=== PATIENT | male | born 1960 | race Caucasian/White ===

== ENCOUNTER 2020-10-31 07:15 | Day surgery (SDC) | payer BC ==
[~2020-10-31] VITALS: Ht 177.8 cm; Wt 91.8 kg
[~2020-10-31 07:15] MED LIST: DAILY VALUE1 EACH PO; LEVAQUIN750 MG PO; LEVOFLOXACIN250 MG PO
--- NOTE | 2020-11-01 05:21 | OR ---
[facility] [address], [place] [address] Signed DATE OF OPERATION: 10/31/2020 SURGEON: Kelvin Lynn MD PREOPERATIVE DIAGNOSES: 1. Diverticulosis (2010). 2. Open radical prostatectomy (2016). POSTOPERATIVE DIAGNOSES: 1. Moderate sigmoid diverticulosis. 2. Anal skin tags x2. 3. Angulated sigmoid colon at 25 cm. PROCEDURE: Colonoscopy without biopsy. ESTIMATED BLOOD LOSS: None. INDICATIONS: Paul is a 60-year-old gentleman asked to see me for his followup 2nd colonoscopy. He had his initial colonoscopy back in 2010 up in [place], [place]. He remembers being told he had diverticulosis, but no polyps. There is no family history of colon cancer or polyps. In the meantime, he had some melena after his 2nd COVID shot. However, he was drinking blueberry, smoothies and using Pepto-Bismol. That all cleared up nicely and he was guaiac negative afterwards. He also had a radical prostatectomy in 2016 with radiation treatment. He said currently he has no lower GI complaints. I had met with Paul in the office and I gave him a pamphlet on colonoscopy. We had discussed the nature of the test along with the risks including, but not limited to gas bloating, crampy abdominal pain, bleeding, perforation requiring surgery, and missed diagnosis. He had expressed understanding and wished to proceed. PROCEDURE NOTE: Paul was taken into our endoscopy suite and placed in the left lateral decubitus position. He was given a total of 10 mg of Versed and 200 mcg of fentanyl. He did fine until we got into the sigmoid colon around 25 cm. It is quite fixed and angulated and some mild inflammatory changes probably from radiation. He was diaphoretic in talking to us and really could not tolerate passing the scope any further. Consequently, we had our anesthesia provider come and add propofol. That worked out quite nicely. Then, I was able to pass the scope all the way around into the cecum without any resistance Electronically Signed By: KELVIN LYNN MD 11/01/20 0521 PATIENT NAME: MJ REYES OPERATIVE REPORT DATE OF : 62 REPORT #: [id number] PHYSICIAN: KELVIN LYNN MD PCP: ANJU CANO REPORT IS CONFIDENTIAL AND NOT TO BE RELEASED WITHOUT AUTHORIZATION [facility] [address], [place] [address] Signed whatsoever. His prep was quite excellent. We could easily see the appendiceal orifice and ileocecal valve. The scope was then slowly withdrawn. We took several pictures throughout for photodocumentation. We can see he has moderate sigmoid diverticulosis. They are moderate in size, moderate in number, and scattered about. Again, he has some angulation at around 25 cm. The rectum was unremarkable. I really did not see any radiation changes in the rectum. Upon retroflexion of scope, he has just a couple of small internal anal skin tags. On digital rectal exam, he had good sphincter tone and of course, the prostate is surgically absent. I did not feel any specific scarring in that area. After this, the gas was suctioned out and the colonoscope removed. Paul overall tolerated procedure well, but he did require the propofol. In that regard, he will need propofol in the future. RECOMMENDATIONS: Paul can follow up in 10 years for a repeat colonoscopy. He should consider monitored anesthesia care and propofol for future endoscopies as described above. MD BLANCA Merino/MODL /[id number] cc: MD Anju Merino PA Copies: KELVIN LYNN MD, LINDA PA ~ Electronically Signed By: KELVIN LYNN MD 11/01/20 0521 PATIENT NAME: MJ REYES OPERATIVE REPORT DATE OF : 62 REPORT #: [id number] PHYSICIAN: KELVIN LYNN MD PCP: ANJU CANO REPORT IS CONFIDENTIAL AND NOT TO BE RELEASED WITHOUT AUTHORIZATION
== END 2020-10-31 10:15 | disposition home or self-care (01) ==
LOC: DS 07:15 → OPS 07:15 → DS 08:15 → OPS 08:15
PROVIDERS: ATTEND Colon & Rectal Surgery
PROC: 0DJD8ZZ Inspection of Lower Intestinal Tract, Via Natural or Artificial Opening Endoscopic (ICD-10-PCS; principal; 2020-10-31 08:15)
DX: K57.30 Diverticulosis of large intestine without perforation or abscess without bleeding (principal); K64.4 Residual hemorrhoidal skin tags; K56.609 Unspecified intestinal obstruction, unspecified as to partial versus complete obstruction; Z90.79 Acquired absence of other genital organ(s); Z92.3 Personal history of irradiation; Z85.46 Personal history of malignant neoplasm of prostate
CPT/HCPCS: J2250; J2704; J3010; J7121